=== PATIENT | female | born 1945 | race Two or more races ===

== ENCOUNTER 2017-11-02 10:32 | Inpatient (IN) | payer SELFPAY ==
[2017-11-01 18:40] VITALS: BP 117/69
[~2017-11-02] VITALS: Ht 154.9 cm; Wt 82.2 kg
[2017-11-02] MEDS ORDERED: ONDANSETRON 2MG/ML, 2ML ONE ×2 (11:38→16:07)
[2017-11-02] MEDS ORDERED: FENTANYL PF 100 MCG/2ML ONE ×5 (11:38→17:34)
[2017-11-02] MEDS ORDERED: CEFAZOLIN PMX 1GM/50ML 50 ML ONE ×2 (11:39→15:35)
[2017-11-02] MEDS: FENTANYL PF 100 MCG/2ML IVPush PRN ×2 (11:42→13:07)
[2017-11-02 11:54] LABS: HEMATOCRIT 43.2 % (34.6-47.8); HEMOGLOBIN 14.7 g/dL (11.7-16.4); WHITE BLOOD COUNT 5.4 x10^3/uL (3.4-10)
[2017-11-02] MEDS ORDERED: SODIUM CHLORIDE FLUSH 10ML SYR IVF ONE (12:00)
[2017-11-02] MEDS ORDERED: ONDANSETRON 2MG/ML, 2ML IVPush ONE (12:00)
[2017-11-02] MEDS ORDERED: CEFAZOLIN PMX 1GM/50ML 50 ML IV ONE (12:00)
[2017-11-02 12:05] LABS: BLOOD UREA NITROGEN 13 mg/dL (7-18)
[2017-11-02] MEDS ORDERED: DIPHTHERIA-TETANUS ADULT 0.5ML IM-VACC ONE (13:00)
[2017-11-02] MEDS ORDERED: ETOMIDATE 20 MG/10 ML ONE (14:11)
[2017-11-02] MEDS ORDERED: SODIUM CHLORIDE 0.9% 1,000 ML IV SCH (14:31)
[2017-11-02] MEDS ORDERED: ENALAPRILAT 1.25 MG/ML, 2ML IVPush PRN (15:00)
[2017-11-02] MEDS ORDERED: ONDANSETRON 2MG/ML, 2ML IVPush PRN ×2 (15:00→16:30)
[2017-11-02] MEDS ORDERED: VANCOMYCIN PER PHARMACY MC PRN (15:00)
[2017-11-02] MEDS ORDERED: ACETAMINOPHEN 325 MG TABLET PO PRN ×2 (15:00→16:30)
[2017-11-02] MEDS ORDERED: BISACODYL 10 MG SUPP PR PRN (15:00)
[2017-11-02] MEDS ORDERED: DOCUSATE 100 MG CAPSULE PO PRN (15:00)
[2017-11-02] MEDS ORDERED: POLYETHYLENE GLYCOL 17 GM PACKET PO PRN (15:00)
[2017-11-02] MEDS ORDERED: MIDAZOLAM 1 MG/ML, 2ML ONE (15:26)
[2017-11-02] MEDS ORDERED: FENTANYL PF 250 MCG/5ML ONE (15:26)
[2017-11-02] MEDS ORDERED: DIPH,PERTUSS(ACELL),TET VAC/PF 0.5 ML IM-VACC ONE (15:35)
[2017-11-02] MEDS: AMPICILLIN/SULBACTAM 3 GM in SODIUM CHLORIDE 0.9% 100 ML IV SCH ×2 (15:40→21:59)
[2017-11-02] MEDS ORDERED: BUPIVACAINE/PF 0.5% ONE (16:07)
[2017-11-02] MEDS ORDERED: EPINEPHRINE 1 MG/ML, 1ML ONE (16:07)
[2017-11-02] MEDS ORDERED: HYDROmorphone 1 MG/ML, 1ML IV PRN (16:30)
[2017-11-02] MEDS ORDERED: OXYcodone 5 MG/5 ML ORAL.SOL UDC PO PRN (16:30)
[2017-11-02] MEDS ORDERED: MEPERIDINE/PF 25MG/0.5ML IVPush PRN (16:30)
[2017-11-02] MEDS: FENTANYL PF 100 MCG/2ML IV PRN ×2 (17:41→17:50)
[2017-11-02] MEDS ORDERED: ACETAMINOPHEN 650 MG/20.3 ML UDC ONE (17:51)
[2017-11-02] MEDS ORDERED: OXYcodone 5 MG/5 ML ORAL.SOL UDC ONE (17:51)
[2017-11-02] MEDS ORDERED: hydrALAzine 20 MG/ML, 1ML ONE (18:19)
[2017-11-02] MEDS ORDERED: hydrALAzine 20 MG/ML, 1ML IV PRN (18:30)
[2017-11-02 18:40] VITALS: BP 117/69
[2017-11-02] MEDS: HYDROcodone/APAP 5/325 TABLET PO PRN (19:27)
[2017-11-02] MEDS ORDERED: PHARMACOKINETIC MONITORING MC PRN (19:30)
[2017-11-02] MEDS ORDERED: PHARMACOKINETIC CONSULTATION MC ONE (19:30)
[2017-11-02] MEDS: VANCOMYCIN 1,500 MG in SODIUM CHLORIDE 0.9% 250 ML IV SCH (20:01)
[2017-11-02 20:37] VITALS: BP 115/73
[2017-11-03] MEDS: HYDROcodone/APAP 5/325 TABLET PO PRN ×4 (00:18→19:10)
[2017-11-03] MEDS: AMPICILLIN/SULBACTAM 3 GM in SODIUM CHLORIDE 0.9% 100 ML IV SCH ×4 (04:06→22:11)
[2017-11-03 04:13] VITALS: BP 139/91
[2017-11-03 05:43] LABS: HEMATOCRIT 37.1 % (34.6-47.8); HEMOGLOBIN 12.8 g/dL (11.7-16.4); WHITE BLOOD COUNT 7.5 x10^3/uL (3.4-10)
[2017-11-03 05:50] LABS: BLOOD UREA NITROGEN 11 mg/dL (7-18)
[2017-11-03 06:50] VITALS: BP 164/78
[2017-11-03 13:43] VITALS: BP 144/78
[2017-11-03] MEDS: VANCOMYCIN 1,500 MG in SODIUM CHLORIDE 0.9% 250 ML IV SCH (19:11)
[2017-11-03 20:00] VITALS: BP 131/66
[2017-11-04 03:41] VITALS: BP 130/70
[2017-11-04] MEDS: AMPICILLIN/SULBACTAM 3 GM in SODIUM CHLORIDE 0.9% 100 ML IV SCH ×3 (04:24→16:02)
[2017-11-04] MEDS: HYDROcodone/APAP 5/325 TABLET PO PRN ×4 (04:32→21:14)
[2017-11-04 05:30] LABS: HEMATOCRIT 35.8 % (34.6-47.8); HEMOGLOBIN 12.3 g/dL (11.7-16.4)
[2017-11-04 07:20] VITALS: BP 124/68
[2017-11-04 10:06] LABS: DIPHTHERIA ANTITOXOID AB 0.58 IU/mL (<0.10); TETANUS ANTITOXOID IGG 0.95 IU/mL (<0.10)
[2017-11-04 15:40] VITALS: BP 123/73
[2017-11-04] MEDS: CEPHALEXIN 500 MG CAPSULE PO SCH (21:12)
[2017-11-04 22:41] VITALS: BP 125/80
[2017-11-05 01:20] VITALS: BP 122/75
[2017-11-05] MEDS: HYDROcodone/APAP 5/325 TABLET PO PRN ×2 (04:52→10:13)
[2017-11-05] MEDS: CEPHALEXIN 500 MG CAPSULE PO SCH ×2 (06:04→11:13)
[2017-11-05 07:12] VITALS: BP 135/76
[2017-11-05] MEDS ORDERED: PNEUMOCOCCAL VACC.PER PHARMACY IM ONE (09:00)
[2017-11-05] MEDS ORDERED: PNEUMOCOCCAL 23 VACCINE IM-VACC ONE (09:00)
[2017-11-05] MEDS ORDERED: FLU VACC QS2017-18 (36MOS+) UP/PF 0.5 ML IM-VACC ONE (09:00)
[2017-11-05] MEDS ORDERED: HYDR-3240 PO (09:32)
[2017-11-05] MEDS ORDERED: CEPH-376 PO (09:32)
[2017-11-05] MEDS ORDERED: DOCU-131 PO (09:46)
[2017-11-05 11:00] VITALS: BP 136/75
== END 2017-11-05 11:40 | disposition home or self-care (01) | DRG 512 ==
LOC: EDBD 10:32 → ED 12:49 → EDIP 14:31 → 4NOR 18:41
PROVIDERS: ADMIT Internal Medicine; ATTEND Internal Medicine
PROC: 0PSJ04Z Reposition Left Radius with Internal Fixation Device, Open Approach (ICD-10-PCS; principal; 2017-11-02 17:00)
PROC: 0PSL04Z Reposition Left Ulna with Internal Fixation Device, Open Approach (ICD-10-PCS; 2017-11-02 17:00)
PROC: 3E0234Z Introduction of Serum, Toxoid and Vaccine into Muscle, Percutaneous Approach (ICD-10-PCS; 2017-11-05)
PROC: 3E0234Z Introduction of Serum, Toxoid and Vaccine into Muscle, Percutaneous Approach (ICD-10-PCS; 2017-11-05)
DX: S52.252A Displaced comminuted fracture of shaft of ulna, left arm, initial encounter for closed fracture (principal); M25.552 Pain in left hip; S52.502A Unspecified fracture of the lower end of left radius, initial encounter for closed fracture; R73.9 Hyperglycemia, unspecified; S70.00XA Contusion of unspecified hip, initial encounter; R91.1 Solitary pulmonary nodule; W00.0XXA Fall on same level due to ice and snow, initial encounter; Y93.89 Activity, other specified; Y92.89 Other specified places as the place of occurrence of the external cause; Y99.8 Other external cause status
CPT/HCPCS: 36415; 71010; 76000; 80048; 82040; 85014; 85018; 85025; 85610; 86317; 90686; 90732; 93005; 96365; 96375; J0171; J0295; J0690; J2250; J2405; J3010; J3370; J3490; C1776; J7030; J7050